=== PATIENT | male | born 1935 | race Caucasian/White ===

== ENCOUNTER → 2019-12-31 | Outpatient (CLI) | payer MEDICARE ==
--- NOTE | 2019-12-31 17:32 | KCIC ---
Lateral lumbar spine radiographs to include flexion extension views 12/31/2019 CLINICAL HISTORY: Spondylolisthesis. Standing neutral lateral and flexion and extension lateral digital radiographs of the lumbar spine were obtained. Mild anterolisthesis of L4 in relation L5 is seen. This increases slightly on the flexion radiograph. 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 Degenerative changes are seen involving the lumbar disc spaces consisting of varying degrees of disc space narrowing, vertebral endplate sclerosis and mild posterior vertebral body osteophyte formation. Degenerative changes are seen involving the facet joints throughout the mid and lower lumbar spine. No fracture or subluxation is seen. Atherosclerotic calcification of the abdominal aorta and its branches is noted. IMPRESSION: Degenerative changes are seen involving lower thoracic and lumbar spine as discussed above. Mild anterolisthesis of L4 in relation to L5 is seen. This increases slightly with patient flexion. Electronically signed by: Evert Solomon MD (12/31/2019 5:29 PM) [id number]
== END ==
LOC: KCIC 11:18
PROVIDERS: ATTEND Neurological Surgery
DX: M47.25 Other spondylosis with radiculopathy, thoracolumbar region (principal); M43.16 Spondylolisthesis, lumbar region
CPT/HCPCS: 72100

== ENCOUNTER → 2020-01-19 | Outpatient (CLI) | payer MEDICARE ==
[~2020-01-19] MED LIST: AMLO-186 PO; ASPI325T8 PO; BENA20TA4 PO; FEXO180T16 PO; GABA-689 PO; GLIM1TAB7 PO; GLUC-11 PO; LEVO150T5 PO; METF10007 PO; NADO20TA2 PO; OMEG-152 PO; OMEP20CA16 PO; PRAV20TA2 PO; TAMS0.4C97 PO
--- NOTE | 2020-01-19 13:04 | PDOC1 ---
INITIAL PAIN CONSULT DATE OF SERVICE: DOS: DATE: 01/19/20 TIME: 12:56 CHIEF COMPLAINT: Chief Complaint: Low back pain HISTORY OF PRESENT ILLNESS: 84-year-old male presents with history of pain for about 3 years in the low back status post lumbar laminectomy discectomy 2014. Patient reports that since that time he did well for about 2 years or so in the past 3 years the pain is beginning to return gradually in the low back but not into the lower extremities. Patient reports is in the low back itself slightly more on the left than the right but present bilaterally worse with walking standing changing positions more noticeable with sitting and driving as well patient reports the pain is sharp and shooting across the low back intermittent intensity changes during the day with activity worse with standing walking once again and tingling in the back as well patient ports aching sensation in the back also. Patient does have some peripheral neuropathy in the lower extremities with this is fairly well controlled with the gabapentin although has been getting more noticeable over the past 6 months or so. Patient reports the pain awakens him from sleep release once or twice a night does not affect his bowel bladder control significantly and he is using a cane to ambulate as it does affect his a bility to walk and he hold his in his right hand. Patient did have some injections in the epidural space prior to his surgery 2014 which were helpful at the time he also done physical therapy and is doing therapy on his own now stretching strength exercises daily that he learned from his previous surgery and post operative therapy. Patient reports the therapy does help to some ex tent but is very short-lived and he is doing it daily and is not last the duration of the day to decrease his pain. Patient has tried Tylenol as well as Motrin and Aleve without significant reduction in pain, patient rates his disability rating 0-10 10 being the worst is a 9 with family home is possibly 10 with recreation for social activity 7 with self-care and/support activities patient did have MRI scan lumbar spine dated November 18, 2011 showing multilevel degenerative disc disease and facet arthropathy with mild to moderate spinal stenosis and bilateral foraminal narrowing at L2-3 L3-4 L4-5 and L5-S1 no significant L3-4 and L4-5 patient reports no loss of motor function but significant fatigability with walking and standing especially after prolonged sitting. PAST MEDICAL HISTORY: PMH: Hypertension, diabetes, hearing loss, basal cell carcinomas, peripheral neuropathy, arthritis PREVIOUS SURGERIES: Past Surgical Hx: Left knee replacement, cataract extractions, thyroidectomy, basal cell skin excisions, lumbar laminectomy 2014 CURRENT MEDICATIONS: Current Meds: Active Scripts Medications Dose Route/Sig Max Daily Dose Days Date Category Pravastatin Sodium 20 Mg Tablet 1 Tab PO QHS 01/19/20 Reported Omeprazole 20 Mg Capsule.dr 1 Cap PO DAILY 01/19/20 Reported Nadolol 20 Mg Tablet 10 Mg PO DAILY 01/19/20 Reported Metformin Hcl 1,000 Mg Tablet 1,000 Mg PO BIDWMEALS 01/19/20 Reported Levothyroxine Sodium 150 Mcg Tablet 1 Tab PO DAILY 01/19/20 Reported Cidaflex Tablet (Glucosamine Hcl/Chondr Pradhan A Na) 1 Each Tablet 1 Tab PO BID 30 01/19/20 Reported Glimepiride 1 Mg Tablet 1 Tab PO DAILY 01/19/20 Reported Gabapentin (Gabapentin) 400 Mg Capsule 400 Mg PO TID 01/19/20 Reported Fish Oil 1,000 Mg Softgel ([facility]-3/Dha/Epa/Fish Oil) 1 Each Capsule 1 Cap PO BID 30 01/19/20 Reported Fexofenadine Hcl 180 Mg Tablet 1 Tab PO DAILY 01/19/20 Reported Benazepril Hcl 20 Mg Tablet 1 Tab PO BID 01/19/20 Reported Aspirin 325 Mg Tablet 1 Tab PO DAILY 01/19/20 Reported Amlodipine Besylate 5 Mg Tablet 5 Mg PO DAILY 01/19/20 Reported Flomax (Tamsulosin Hcl) 0.4 Mg Cap.er.24h 0.4 Mg PO DAILY 01/19/20 Reported FAMILY HISTORY: Family Hx: No major medical problems or conditions that he is aware of SOCIAL HISTORY: Social Hx: Patient drinks alcohol 1 to 2 glasses of wine once a month does not smoke does not use any illegal illicit or recreational drugs, is a lives with his son locally in [facility] and is currently retired REVIEW OF SYSTEMS: ROS: Positive for those items mentioned in history of present illness, all systems are reviewed, otherwise negative, is complete full and well-documented on patient's chart PHYSICAL EXAM: VS: Blood pressure is 190/111 pulse 59 respirations 18 temperature is 98.6 F height is 6 feet 2 inches weight is 258 pounds PE: PHYSICAL EXAMINATION: GENERAL: The patient is awake, alert, oriented, appropriate, very pleasant demeanor HEENT: Shows normocephalic, atraumatic. Extraocular movements are intact and symmetrical. Oral cavity: Mucous membranes moist and pink. Dentition is intact. NECK: Shows anterior throat supple without palpable lymphadenopathy noted. Swallow reflex symmetrical. CHEST: Shows normal on inspection. Breath sounds are clear bilaterally, no rales rhonchi wheezes auscultated. HEART: Shows S1, S2 clear. No murmurs auscultated. ABDOMEN: Soft, nontender, nondistended, obese. No palpable organomegaly is noted. No rebound or guarding demonstrated. BACK: Shows spine grossly in the midline. Normal-appearing cervical lordotic curvature. There is slightly increased thoracic kyphosis, some minor flattening of the lumbar lordotic curvature. Lumbar paraspinous muscles show symmetrical on inspection, on palpation shows some moderate tenderness diffusely throughout the upper, middle and lower distribution of the paraspinous muscles bilaterally, but without specific trigger points, without radiation of pain. The patient has good rotational motion of the lumbar spine, with significant pain noted with extension and axial loading greater than 10 degrees posteriorly with decreased pain with forward flexion 45 degrees which is performed fully. Patient shows good rotation right and left with some moderate to severe pain with left lateral rotation greater than 10 degrees but not as tender and only minimally tender on rotation to the right at 10 degrees. No radiation of pain to the lower extremities with these maneuvers. No tenderness over the spinous processes, sacrum or sacroiliac regions. EXTREMITIES: Lower extremities show deep tendon reflexes 2+ in the patellar and tendo calcaneus tendons. Motor exam is 5 on a scale of 5 with right dorsiflexion, extension, quadriceps and hamstring flexion and 5/5 on the left. Peripheral pulses are 1+ posterior tibial. No peripheral edema is noted bilaterally. Lower extremities are warm and dry to touch, equal in color and appearance. Straight leg raise noted to be negative bilaterally. Gaenslen's and Daryl's maneuvers are negative bilaterally as well. The patient is able to stand, stand on his toes with some moderate loss of balance with putting all of his weight in his left foot but walks with slight favoring gait favoring the left lower extremity and again is using a cane in his right hand ambulate. SKIN: Shows warm and dry, good turgor. No edema. No sores, rashes or bruising throughout. IMPRESSION: Impression: 84-year-old male with approximate 3-year history increasing pain low back MRI scan lumbar spine as noted Diabetes Hypertension Arthritis Peripheral neuropathy Plan: Options were discussed with the patient including conservative recommend of his physical therapies interventional techniques as patient has had physical therapies and is doing therapy stretching strength exercises on his own currently and has tried Tylenol as well as Motrin and Aleve without significant long-term reduction in pain he would like to pursue interventional techniques. We discussed lumbar facet medial branch injections using descriptions as well as anatomical models to describe the procedure. Patient will wait for preauthorization with his insurance provider once this is approved we will have him return for bilateral L4-5 and L5-S1 facet medial branch blocks. NANCY GRULLON MD Jan 19, 2020 13:04
== END | disposition home or self-care (01) ==
LOC: PNCL 10:42
PROVIDERS: ATTEND Anesthesiology
DX: M54.5 Low back pain (principal); G62.9 Polyneuropathy, unspecified; I10 Essential (primary) hypertension; E11.9 Type 2 diabetes mellitus without complications; M19.90 Unspecified osteoarthritis, unspecified site; Z85.828 Personal history of other malignant neoplasm of skin; Z79.899 Other long term (current) drug therapy; Z98.890 Other specified postprocedural states; Z79.82 Long term (current) use of aspirin
CPT/HCPCS: G0463

== ENCOUNTER → 2020-02-03 | Outpatient (CLI) | payer MEDICARE ==
[~2020-02-03] MED LIST changes: +BUPIVACAINE MPF 0.25% 10 ML VIAL. ONE; +IOHEXOL 180 MG/ML 10 ML VIAL. ONE; +methylPREDNISolone ACETATE 40 MG/ML VIAL. ONE; +methylPREDNISolone ACETATE 80 MG/ML VIAL. ONE
--- NOTE | 2020-02-03 10:03 | PDOC ---
Progress Note - Pain Clinic Date of Service: DOS: DATE: 02/03/20 TIME: 10:00 Diagnosis: Dx: Lumbar and lumbosacral spondylosis Post lumbar laminectomy syndrome History or Present Illness: HPI: 84-year-old male returns follow-up status post evaluation preauthorization for bilateral facet joint injections patient reports still significant pain in the low back bilaterally right greater than left but present bilaterally worse with standing walking changing positions sitting for prolonged periods better with laying down does not generally awaken him from sleep at night. Patient reports the pain is radiating across the low back again worse on the right dull and sharp alternating tight as well in the back with activity. Patient reports his pain is a 9 on average 9 at its worst and a 6 at its least is a 9 today. Patient reports no new motor or sensory deficits no new bowel or bladder incontinence or other complaints. Physical Exam: VS: Blood pressure is 168/95 pulse 63 respirations 18 temperature 98.5 F height is 6 feet 2 inches weight is 2 8 1 pounds PE: PHYSICAL EXAMINATION: GENERAL: The patient is awake, alert, oriented, appropriate, very pleasant demeanor HEENT: Shows normocephalic, atraumatic. Extraocular movements are intact and symmetrical. Oral cavity: Mucous membranes moist and pink. Dentition is intact. NECK: Shows anterior throat supple without palpable lymphadenopathy noted. Swallow reflex symmetrical. CHEST: Shows normal on inspection. Breath sounds are clear bilaterally, no rales rhonchi or wheezes. HEART: Shows S1, S2 clear. No murmurs auscultated. ABDOMEN: Soft, nontender, nondistended. No palpable organomegaly is noted. No rebound or guarding demonstrated. BACK: Shows spine grossly in the midline, obese. Normal-appearing cervical lordotic curvature. There is slightly increased thoracic kyphosis, some minor flattening of the lumbar lordotic curvature. Lumbar paraspinous muscles show symmetrical on inspection, on palpation shows some moderate tenderness diffusely throughout the upper, middle and lower distribution of the paraspinous muscles without specific trigger points, without radiation of pain. The patient has good rotational motion of the lumbar spine, both laterally as well as extension and flexion, with some significant pain with right lateral rotation greater than 10 degrees also with extension greater than 10 degrees with pain bilaterally and moderate pain with left lateral rotation greater than 10 degrees no specific pain with forward flexion 45 degrees. No tenderness over the spinous processes, sacrum or sacroiliac regions. EXTREMITIES: Lower extremities show deep tendon reflexes 2+ in the patellar and tendo calcaneus tendons. Motor exam is 5 on a scale of 5 with right dorsiflexion, extension, quadriceps and hamstring flexion and 5/5 on the left. Peripheral pulses are 1+ posterior tibial. No peripheral edema is noted bilaterally. Lower extremities are warm and dry to touch, equal in color and appearance. SKIN: Shows warm and dry, good turgor. No edema. No sores, rashes or bruising throughout. Procedure: Procedure: Options were discussed with the patient, patient's old chart was reviewed his his current medication regimen updated current review of systems updated today as well. We will proceed with bilateral L4-5 and L5-S1 facet joint injections today with fluoroscopic guidance. Risks were discussed including but not limited to: Bleeding, infection, possibility of epidural hematoma and subsequent neurological compromise, dural puncture, headaches, spinal cord and/or nerve damage, side effects of steroid medication, and poor results regarding pain control. Patient understands wished to proceed. Patient will return to clinic in approximately 4 weeks for follow-up was counseled as to return appointment activity level and side effects to be aware of. Medication Injected: Med Injected: Under sterile prep and drape using C-arm fluoroscopic guidance AP and lateral and oblique views, bilateral L4-5 and L5-S1 facet joint injections, medications injected: 120 mg Depo-Medrol +4 cc 0.25% bupivacaine +2 cc contrast. Condition at discharge stable patient tolerated the procedure well and no complications. Condition at Discharge: Condition at Discharge: Condition at discharge stable, patient tolerated procedure well had no compl ications. NANCY GRULLON MD Feb 03, 2020 10:03
== END | disposition home or self-care (01) ==
LOC: PNCL 09:15
PROVIDERS: ATTEND Anesthesiology
DX: M47.817 Spondylosis without myelopathy or radiculopathy, lumbosacral region (principal); M96.1 Postlaminectomy syndrome, not elsewhere classified; Z79.82 Long term (current) use of aspirin; Z79.899 Other long term (current) drug therapy; Z98.890 Other specified postprocedural states
CPT/HCPCS: 64493; 64494; J1030; J1040; J3490; Q9965; 64635; 64636

== ENCOUNTER → 2020-03-10 | Outpatient (CLI) | payer MEDICARE ==
[~2020-03-10] MED LIST changes: -BUPIVACAINE MPF 0.25% 10 ML VIAL. ONE
--- NOTE | 2020-03-10 13:20 | PDOC ---
Progress Note - Pain Clinic Date of Service: DOS: DATE: 03/10/20 TIME: 13:17 Diagnosis: Dx: Lumbar radiculopathy with lumbar spondylosis lumbar degenerative disc disease and post lumbar laminectomy syndrome History or Present Illness: HPI: 84-year-old male returns follow-up status post facet injections L4-5 and L5-S1 bilateral with only a few hours of decreased pain patient reports pain in the ev ening after the injections the pain was back to his baseline with significant pain in the low back itself some radiation the posterior hip slightly worse on the left right but present bilaterally patient ports the posterior gluteus bilaterally rated a 9 on scale 10 is worst the last week 9 on average 9 at its least is a 9 today. Patient reports is aching dull tight worse with standing becomes more constant on and off in intensity better with sitting or laying down does not awaken her from sleep at night patient reports no new motor or sensory deficits no new bowel or bladder cons but significant pain with activity standing walking and changing positions from seated to standing especially. Patient is walking with a cane he is holding in his right hand. Physical Exam: VS: Blood pressure is 154/89 pulse is 67 respirations 16 temperature 90.2 F weight is 2 4 8 pounds PE: PHYSICAL EXAMINATION: GENERAL: The patient is awake, alert, oriented, appropriate, very pleasant demeanor HEENT: Shows normocephalic, atraumatic. Extraocular movements are intact and symmetrical. Oral cavity: Mucous membranes moist and pink. NECK: Shows anterior throat supple without palpable lymphadenopathy noted. Swallow reflex symmetrical. CHEST: Shows normal on inspection. Breath sounds are clear bilaterally, distant but clear. HEART: Shows S1, S2 clear. No murmurs auscultated. ABDOMEN: Soft, nontender, nondistended, obese. No palpable organomegaly is noted. No rebound or guarding demonstrated. BACK: Shows spine grossly in the midline. Normal-appearing cervical lordotic curvature. There is slightly increased thoracic kyphosis, some minor flattening of the lumbar lordotic curvature. Lumbar paraspinous muscles show symmetrical on inspection, on palpation shows some moderate tenderness diffusely throughout the upper, middle and lower distribution of the paraspinous muscles, but without specific trigger points, without radiation of pain. The patient has good rotational motion of the lumbar spine, both laterally as well as extension and flexion without significant difficulty. No tenderness over the spinous processes, sacrum or sacroiliac regions. EXTREMITIES: Lower extremities show deep tendon reflexes 2+ in the patellar and tendo calcaneus tendons. Motor exam is 5 on a scale of 5 with right dorsiflexion, extension, quadriceps and hamstring flexion and 5/5 on the left. Peripheral pulses are 1+ posterior tibial. No peripheral edema is noted bilaterally. Lower extremities are warm and dry to touch, equal in color and appearance. SKIN: Shows warm and dry, good turgor. No edema. No sores, rashes or bruising throughout. Procedure: Procedure: Options were discussed with the patient. Patient will chart reviews her current medication regimen updated current review of systems updated today as well. We will proceed with a lumbar epidural steroid injection today with fluoroscopic guidance. Risks were discussed including but not limited to: Bleeding, inf ection, possibility of epidural hematoma and subsequent neurological compromise, dural puncture, headaches, spinal cord and/or nerve damage, side effects of steroid medication, and poor results regarding pain control. Patient understands wished to proceed. Patient will return to clinic in approximate 2 weeks for follow-up, was counseled as to return appointment activity level and side effects to be aware of. Medication Injected: Med Injected: Procedure is lumbar epidural steroid injection under local anesthetic using sterile prep and drape at the L4-5 level using C-arm fluoroscopic guidance in both AP and lateral views medications injected is 120 mg Depo-Medrol + 10 mL preservative-free normal saline and 2 mL contrast- condition at discharge is stable patient tolerated procedure well had no complications. Condition at Discharge: Condition at Discharge: Condition at discharge stable, patient tolerated the procedure well and had no complications. NANCY GRULLON MD Mar 10, 2020 13:20
== END | disposition home or self-care (01) ==
LOC: PNCL 12:06
PROVIDERS: ATTEND Anesthesiology
DX: M51.16 Intervertebral disc disorders with radiculopathy, lumbar region (principal); M47.26 Other spondylosis with radiculopathy, lumbar region; I10 Essential (primary) hypertension; M96.1 Postlaminectomy syndrome, not elsewhere classified; G62.9 Polyneuropathy, unspecified; E11.42 Type 2 diabetes mellitus with diabetic polyneuropathy; M19.90 Unspecified osteoarthritis, unspecified site; Z98.890 Other specified postprocedural states; Z85.828 Personal history of other malignant neoplasm of skin; Z79.899 Other long term (current) drug therapy; Z79.84 Long term (current) use of oral hypoglycemic drugs; Z79.82 Long term (current) use of aspirin
CPT/HCPCS: 62323; J1030; J1040; Q9965

== ENCOUNTER → 2020-03-24 | Outpatient (CLI) | payer MEDICARE ==
--- NOTE | 2020-03-24 13:50 | PDOC ---
Progress Note - Pain Clinic Date of Service: DOS: DATE: 03/24/20 TIME: 13:46 Diagnosis: Dx: Lumbar radiculopathy with lumbar degenerative disc disease lumbar spondylosis and post lumbar laminectomy syndrome History or Present Illness: HPI: 84-year-old male returns follow-up status post lumbar epidural steroid injection x1. Patient reports 100% improvement for several days following the injection a bout the first week or so and the pain gradually returned to its baseline in the low back and bilateral lower extremities mostly the posterior gluteus posterior lateral thighs but most significantly noticeable and painful across the low back patient reports is a 9 on scale 10 is worst over the past week 9 on average 6 its least and is a 7 today. Patient ports for those first few days he was doing much better with distance walking doing household activities travel with greater ease and comfort and was quite pleased with the progress, sleeping well at night patient reports he still sleeps fairly well, and it is really worse with kane ding or walking better with sitting or laying down. Patient reports no new motor or sensory deficits no new bowel or bladder incontinence or other complaints. Physical Exam: VS: Pressure is 133/83 pulse 66 respiration 16 temperature 97 weight is 242 pounds PE: PHYSICAL EXAMINATION: GENERAL: The patient is awake, alert, oriented, appropriate, very pleasant demeanor HEENT: Shows normocephalic, atraumatic. Extraocular movements are intact and symmetrical. NECK: Shows anterior throat supple without palpable lymphadenopathy noted. Swallow reflex symmetrical. CHEST: Shows normal on inspection. Breath sounds are clear bilaterally. HEART: Shows S1, S2 clear. No murmurs auscultated. ABDOMEN: Soft, nontender, nondistended, obese. No palpable organomegaly is noted. BACK: Shows spine grossly in the midline. Normal-appearing cervical lordotic curvature. There is slightly increased thoracic kyphosis, some minor flattening of the lumbar lordotic curvature. Lumbar paraspinous muscles show symmetrical on inspection, on palpation shows some moderate tenderness diffusely throughout the upper, middle and lower distribution of the paraspinous muscles, but without specific trigger points, without radiation of pain. The patient has good rotational motion of the lumbar spine, both laterally as well as extension and flexion without significant difficulty. No tenderness over the spinous processes, sacrum or sacroiliac regions. EXTREMITIES: Lower extremities show deep tendon reflexes 2+ in the patellar and tendo calcaneus tendons. Motor exam is 5 on a scale of 5 with right dorsiflexion, extension, quadriceps and hamstring flexion and 5/5 on the left. Quadriceps and hamstrings approximate 4-5 but equal bilaterally. Peripheral pulses are 1+ posterior tibial. No peripheral edema is noted bilaterally. Lower extremities are warm and dry to touch, equal in color and appearance. SKIN: Shows warm and dry, good turgor. No edema. No sores, rashes or bruising throughout. Procedure: Procedure: Options were discussed with the patient. Patient will chart reviews his current medication regimen updated current review of systems updated today as well. We will proceed with a second in the series lumbar epidural steroid injection today with fluoroscopic guidance. Risks were discussed including but not limited to: Bleeding, infection, possibility of epidural hematoma and subsequent neurological compromise, dural puncture, headaches, spinal cord and/or nerve damage, side effects of steroid medication, and poor results regarding pain control. Patient understands wished to proceed. Patient will return to clinic in approximate 2 weeks for follow-up, was counseled as to return appointment activity level and side effects to be aware of. Medication Injected: Med Injected: Procedure is lumbar epidural steroid injection under local anesthetic using sterile prep and drape at the L4-5 level using C-arm fluoroscopic guidance in both AP and lateral views medications injected is 120 mg Depo-Medrol + 10 mL preservative-free normal saline and 2 mL contrast- condition at discharge is stable patient tolerated procedure well had no complications. Condition at Discharge: Condition at Discharge: Condition at discharge stable, patient tolerated the procedure well and had no complications. NANCY GRULLON MD Mar 24, 2020 13:49
== END | disposition home or self-care (01) ==
LOC: PNCL 12:47
PROVIDERS: ATTEND Anesthesiology
DX: M51.16 Intervertebral disc disorders with radiculopathy, lumbar region (principal); M47.26 Other spondylosis with radiculopathy, lumbar region; M96.1 Postlaminectomy syndrome, not elsewhere classified; Z98.890 Other specified postprocedural states
CPT/HCPCS: 62323; J1030; J1040; Q9965

== ENCOUNTER → 2020-04-07 | Outpatient (CLI) | payer MEDICARE ==
--- NOTE | 2020-04-07 13:45 | PDOC ---
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 Patient reports good relief and only for few days after the injection about 80 to 90% improvement the first day is about 100% improved similar to his last injection. Patient reports after that time the pain returned after few days in the low back and worse on the right side than the left. Patient reports is worse with walking and standing change positions better with sitting or lying down he has almost no pain with sitting patient reports it wakes him sleep occasionally but not more than every 5-6 hours patient rates the pain as a 9 on scale 10 is worse over the past week 9 on average 6 its least and is a 9 today. Patient reports no new motor or sensory deficits describes the pain is severe in the low back and radiating to the right lower extremity greater than the left but present bilaterally. Patient reports no new motor or sensory deficits no new bowel or bladder incontinence. Physical Exam: VS: Blood pressure is 118/78 pulse 67 respirations 16 temperature 97.8 F weight is 240 pounds PE: PHYSICAL EXAMINATION: GENERAL: The patient is awake, alert, oriented, appropriate, very pleasant demeanor HEENT: Shows normocephalic, atraumatic. Extraocular movements are intact and symmetrical. Patient has recent lesions from dermatology biopsies on the nose as well as both ears. Oral cavity: Mucous membranes moist and pink. NECK: Shows anterior throat supple without palpable lymphadenopathy noted. Swallow reflex symmetrical. CHEST: Shows normal on inspection. Breath sounds are clear bilaterally, no rales or rhonchi bilaterally. HEART: Shows S1, S2 clear. No murmurs auscultated. ABDOMEN: Soft, nontender, nondistended, obese. No palpable organomegaly is noted. No rebound or guarding demonstrated. BACK: Shows spine grossly in the midline. Normal-appearing cervical lordotic curvature. Well-healed midline surgical scarring is noted. There is slightly increased thoracic kyphosis, some minor flattening of the lumbar lordotic curvature. Lumbar paraspinous muscles show symmetrical on inspection, on palpation shows some moderate tenderness diffusely throughout the upper, middle and lower distribution of the paraspinous muscles, but without specific trigger points, without radiation of pain. The patient has good rotational motion of the lumbar spine, both laterally as well as extension and flexion without significant difficulty. No tenderness over the spinous processes, sacrum or sacroiliac regions. EXTREMITIES: Lower extremities show deep tendon reflexes 2+ in the patellar and tendo calcaneus tendons. Motor exam is 5 on a scale of 5 with right dorsiflexion, extension, and 5/5 on the left. Quadriceps and hamstring flexion are 4 out of 5 equal bilaterally. Peripheral pulses are 1+ posterior tibial. No peripheral edema is noted bilaterally. Lower extremities are warm and dry to touch, equal in color and appearance. SKIN: Shows warm and dry, good turgor. No edema. No sores, rashes or bruising throughout. Procedure: Procedure: Options were discussed with the patient. Patient chart reviews his current medication regimen updated current review of systems updated today as well. We will proceed with a third in the series lumbar epidural steroid traction today with fluoroscopic guidance. Risks were discussed including but not limited to: Bleeding, infection, possibility of epidural hematoma and subsequent neurological compromise, dural puncture, headaches, spinal cord and/or nerve damage, side effects of steroid medication, and poor results regarding pain control. Patient understands and wished to proceed. Patient will return to clinic in approximate 2 weeks for follow-up, was counseled as return appointment activity level, and side effects to be aware of. Medication Injected: Med Injected: Procedure is lumbar epidural steroid injection under local anesthetic using sterile prep and drape at the L4-5 level using C-arm fluoroscopic guidance in both AP and lateral views medications injected is 120 mg Depo-Medrol + 10 mL preservative-free normal saline and 2 mL contrast- condition at discharge is stable patient tolerated procedure well had no complications. Condition at Discharge: Condition at Discharge: Condition at discharge stable, patient tolerated the procedure well and had no complications. NANCY GRULLON MD Apr 07, 2020 13:45
== END | disposition home or self-care (01) ==
LOC: PNCL 13:02
PROVIDERS: ATTEND Anesthesiology
DX: M51.16 Intervertebral disc disorders with radiculopathy, lumbar region (principal); M47.26 Other spondylosis with radiculopathy, lumbar region; M96.1 Postlaminectomy syndrome, not elsewhere classified; Z79.82 Long term (current) use of aspirin; Z79.899 Other long term (current) drug therapy; Z98.890 Other specified postprocedural states
CPT/HCPCS: 62323; J1030; J1040; Q9965